=== PATIENT | male | born 1990 | race Two or more races ===

== ENCOUNTER 2021-08-10 21:45 | Emergency (ER) | payer SELFPAY ==
[2021-08-10 21:24] VITALS: BP 130/95; PULSE 113; RESP 18; TEMP 36.7; O2SAT 96; BMI 38.2
--- NOTE | 2021-08-10 21:29 | XR_ITS ---
PROCEDURE INFORMATION: Exam: XR Chest Exam date and time: 08/10/21 09:52 PM Age: 32 years old Clinical indication: Other: Hemaemesis; Additional info: Hematemesis TECHNIQUE: Imaging protocol: XR of the chest. Views: 1 view. COMPARISON: CT ABDOMEN PELVIS WO CON 08/10/21 09:45 PM FINDINGS: Lungs: Unremarkable. No consolidation. Pleural spaces: Unremarkable. No pleural effusion. No pneumothorax. Heart/Mediastinum: Unremarkable. No cardiomegaly. Bones/joints: Unremarkable. IMPRESSION: No acute findings.
--- NOTE | 2021-08-10 21:29 | CT_ITS ---
PROCEDURE INFORMATION: Exam: CT Abdomen And Pelvis Without Contrast Exam date and time: 08/10/21 09:45 PM Age: 32 years old Clinical indication: Other: Hemaemesis; Abdominal pain; Epigastric; Prior surgery; Surgery date: 6+ months; Surgery type: Gb; Additional info: Ruq abd pain, hematemesis/melena TECHNIQUE: Imaging protocol: Computed tomography of the abdomen and pelvis without contrast. Radiation optimization: All CT scans at this facility use at least one of these dose optimization techniques: automated exposure control; mA and/or kV adjustment per patient size (includes targeted exams where dose is matched to clinical indication); or iterative reconstruction. COMPARISON: No relevant prior studies available. FINDINGS: Tubes, catheters and devices: None noted. Lungs: Lung bases appear clear. Heart: No significant coronary calcifications. No cardiomegaly. No significant pericardial effusion. Liver: Normal. No mass. Gallbladder and bile ducts: Cholelithiasis in the gallbladder remnant. Surgical changes. No ductal dilation. Pancreas: Normal. No ductal dilation. Spleen: Normal. No splenomegaly. Adrenal glands: Normal. No mass. Kidneys and ureters: Normal. No hydronephrosis. Stomach and bowel: Unremarkable. No obstruction. No mucosal thickening. Appendix: Appendix is well visualized. No evidence of appendicitis. Intraperitoneal space: Unremarkable. No free air. No significant fluid collection. Retroperitoneal space: No significant retroperitoneal inflammatory changes are noted. Vasculature: Unremarkable. No abdominal aortic aneurysm. Lymph nodes: Unremarkable. No enlarged lymph nodes. Urinary bladder: Unremarkable as visualized. Reproductive: Unremarkable as visualized. Bones/joints: Unremarkable. No acute fracture. Soft tissues: Unremarkable. IMPRESSION: No acute findings.
--- NOTE | 2021-08-10 21:35 | [facility].EDGENADL ---
ED Disposition Clinical Impression: Alcohol intoxication Qualifiers: Complication of substance-induced condition: uncomplicated Qualified Code(s): F10.920 - Alcohol use, unspecified with intoxication, uncomplicated Disposition: Home, Self-Care Condition on Discharge: Good Instructions: DI for Acute Abdominal Pain Additional Instructions: Limit alcohol use. Okay to take Tylenol as needed for pain, Zofran for nausea. Follow-up with your PCP. Return to ED with new or concerning symptoms. Prescriptions: Ondansetron [Zofran 4mg ODT] 4 mg SL TIDP PRN 3 Days #12 tab PRN Reason: Nausea And Vomiting Transmission Status: Pending to [id number] - Critical Care Critical Care Time: No Attestation: On , the high probability of a clinically significant, sudden or life threatening deterioration of the following system(s) required my full and direct attention, intervention and personal management. The time I documented below is in addition to time spent performing reported procedures but includes the following listed in this critical care notation. Medical Decision Making - Medical Records Medical records reviewed: Yes: I reviewed the patient's medical records. - [facility] Inquiry Pt receiving controlled substance: No Vital Signs: 08/10/21 21:24 Temperature 98.1 F Temperature Source Oral Pulse Rate [Right] 113 H Respiratory Rate 18 Blood Pressure [Right Arm] 130/95 H Blood Pressure Mean [Right Arm] 106 02 Sat by Pulse Oximetry 96 - Lab Data Lab Results 08/10/21 21:38: WBC 10.8, RBC 5.04, Hgb 13.8 L, Hct 39.8 L, MCV 78.9 L, MCH 27.4, MCHC 34.8, RDW 14.3, Plt Count 224, MPV 9.0, Neut % (Auto) 52.7, Lymph % (Auto) 36.8, Crowley % (Auto) 6.8, Eos % (Auto) 0.7, Baso % (Auto) 3.0 H, Neut # (Auto) 5.7, Lymph # (Auto) 4.0, Crowley # (Auto) 0.7, Eos # (Auto) 0.1, Baso # (Auto) 0.3 H 08/10/21 21:38: Sodium 146 H, Potassium 3.5, Chloride 108 H, Carbon Dioxide 22, Anion Gap 19.5 H, BUN 10, Creatinine 0.70, Estimated Creat Clear 224, Estimated GFR 131, Est GFR ( Amer) 158, Glucose 137 H, Calcium 8.8, Total Bilirubin 0.6, AST 62 H, ALT 87 H, Alkaline Phosphatase 161 H, Total Protein 7.9, Albumin 4.8, Globulin 3.1, Albumin/Globulin Ratio 1.5, Lipase 70 08/10/21 21:38: Plasma/Serum Alcohol 309 H 08/10/21 21:38: PT 10.9, INR 0.96 08/10/21 21:40: Blood Type O Positive, Antibody Screen Negative Result diagrams: 08/10/21 21:38 08/10/21 21:38 Orders (Tests/Meds): ED MEDICATIONS Generic Name Dose Route Start Last Admin Trade Name Freq PRN Reason Stop Dose Admin Sodium Chloride 500 mls @ 999 mls/hr 08/10/21 21:45 08/10/21 21:40 Sod Chlor 0.9% 1000ml Bag IV 08/10/21 22:15 999 mls/hr .Q31M ROLAN Administration Discontinued Medications Generic Name Dose Route Start Last Admin Trade Name Freq PRN Reason Stop Dose Admin Ketorolac Tromethamine 15 mg 08/10/21 22:27 08/10/21 22:33 Ketorolac 30mg/Ml Vial IV 08/10/21 22:28 15 mg ONCE ONE Administration Ondansetron HCl 4 mg 08/10/21 21:32 08/10/21 21:39 Ondansetron 4mg/2ml Vial IV 08/10/21 21:33 4 mg ONCE ONE Administration - Radiology Data #1 Image(s): Chest Image Reviewed: Yes I reviewed the patient's radiology results INDINGS: Lungs: Unremarkable. No consolidation. Pleural spaces: Unremarkable. No pleural effusion. No pneumothorax. Heart/Mediastinum: Unremarkable. No cardiomegaly. Bones/joints: Unremarkable. IMPRESSION: No acute findings. - CT Data CT Scan: Abdomen Time Received: 01:[address] Reviewed: Yes: I have viewed the radiologist's interpretation Findings Narrative: NDINGS: Tubes, catheters and devices: None noted. Lungs: Lung bases appear clear. Heart: No significant coronary calcifications. No cardiomegaly. No significant pericardial effusion. Liver: Normal. No mass. Gallbladder and bile ducts: Cholelithiasis in the gallbladder remnant. Surgical changes. No ductal dilation.
[2021-08-10 22:11] LABS: Basophils # 0.3 K/mm3 (0-0.2); Eosinophils # 0.1 K/mm3 (0.0-0.4); Eosinophils % 0.7 % (0.1-12.0); Hematocrit 39.8 % (42.0-52.0); Hemoglobin 13.8 g/dL (14.1-18.0); Lymphocytes % 36.8 % (10-50); Mean Corpuscular HGB Conc 34.8 g/dL (31.8-35.4); Mean Corpuscular Hemoglobin 27.4 pg (27.0-31.2); Mean Corpuscular Volume 78.9 fl (80-94); Monocytes # 0.7 K/mm3 (0.1-1.0); Monocytes % 6.8 % (1.7-9.3); Neutrophils # 5.7 K/mm3 (1.8-7.8); Neutrophils % 52.7 % (37.0-80.0); Platelet Count 224 K/mm3 (142-424); Red Blood Count 5.04 M/mm3 (4.60-6.20); Red Cell Distribution Width 14.3 % (11.5-17.5); White Blood Count 10.8 K/mm3 (4.8-10.8)
[2021-08-10 22:15] LABS: Chloride 108 mmol/L (98-107); Potassium 3.5 mmoL/L (3.5-5.1); Sodium 146 mmol/L (136-145)
[2021-08-10 22:17] LABS: Blood Urea Nitrogen 10 mg/dl (9-20); INR 0.96 (0.9-1.1); Prothrombin Time 10.9 seconds (10.1-12.5)
[2021-08-10 22:18] LABS: Alanine Aminotransferase 87 U/L (12-78); Albumin Level 4.8 g/dl (3.5-5.0); Albumin/Globulin Ratio 1.5 (1.1-1.8); Alkaline Phosphatase 161 U/L (38-126); Anion Gap 19.5 mEq/L (5-15); Aspartate Amino Transferase 62 U/L (17-59); Bilirubin,Total 0.6 mg/dl (0.2-1.3); Calcium 8.8 mg/dl (8.4-10.2); Carbon Dioxide 22 mmol/L (22.0-30.0); Creatinine Clearance Estimated 224 mL/min (50-200); Estimated Glomerular Filt Rate 131 ml/min (>60); GFR (African American) 158 ML/MIN (>60); Globulin 3.1 g/dL (1.3-3.2); Glucose 137 mg/dl (74-100); Lipase 70 U/L (23-300); Total Protein,Serum 7.9 g/dl (6.3-8.2)
[2021-08-10 22:25] LABS: Ethyl Alcohol 309 mg/dl (0-10)
[2021-08-11 01:34] VITALS: BP 125/85; PULSE 78; RESP 18; TEMP 36.8; O2SAT 99
== END 2021-08-11 01:36 | disposition home or self-care (01) ==
PROVIDERS: Emergency Provider Emergency Medicine
DX: F10.920 Alcohol use, unspecified with intoxication, uncomplicated (principal); R10.12 Left upper quadrant pain; K92.0 Hematemesis; K92.1 Melena
CPT/HCPCS: 71045; 74176; 80053; 83690; 85025; 85610; 86850; 96365; 96375; 99284; J2405